=== PATIENT | female | born 1955 | race Caucasian/White ===

== ENCOUNTER → 2016-08-12 | Outpatient (CLI) | payer OTHER ==
[~2016-08-12] MED LIST: ADVAIR DISKUS 21 DSK IH; ALBUTEROL0.09 MG/AC INH; ATARAX25 MG PO; AUGMENTIN 875875 MG PO; AUVI-Q0.3 MG/0.3 MR; DOXYCYCLINE100 M3 PO; MEDROL DOSEPAK4 MG PO; MOTRIN600 MG PO; NEXIUM20 MG PO; OMNICEF300 MG PO; PEPCID20 MG PO; PREDNICOT10 MG PO; PREDNISONE; PREDNISONE10 MG PO; PREDNISONE20 M1 PO; PREDNISONE20 MG PO; SPIRIVA -- 3018 MCG INH; SYMBICORT1 AE1 INH; VIBRAMYCIN100 MG PO; ZITHROMAX500 MG PO
== END | disposition home or self-care (01) ==
LOC: RAD 14:09
DX: M54.6 Pain in thoracic spine (principal)

== ENCOUNTER → 2016-08-24 | Outpatient (CLI) | payer OTHER ==
[~2016-08-24] MED LIST changes: +CLARITIN LIQUI-10 MG PO; +DALI500T PO; +DULE1ARO1 INH; +LASIX40 MG PO; +POTASSIUM99 M3 PO; +SINGULAIR10 M1 PO; +SPIRIVA18 MCG PO
--- NOTE | ~2016-08-24 | ST ---
[place], [place] EXERCISE STRESS TEST REPORT NAME: ARYA JACOBO UNIT #: [id number] ROOM: DOCTOR: CHERYL HO MD BIRTHDATE: [birth year] DOS: PROCEDURE: Lexiscan stress test. INDICATIONS: Central chest pain. PHARMACOLOGICAL STRESS TEST: 1. The patient was given Lexiscan 0.4 mg over 10 minutes followed by nuclear injection at 40 seconds. 2. Exercise data: Baseline heart rate was 79, blood pressure 108/60. Heart rate at 2 minutes was 92. Blood pressure 98/50. 3. EKG data: Baseline rhythm, normal sinus rhythm. Stress EKG, no changes. 4. Clinical data: Symptoms, the patient had weird feeling and was short of breath. IMPRESSION: 1. Normal Lexiscan stress test. 2. Wait for Cardiolite images for full report. CHERYL HO MD CM:STRESS:EXERCISE STRESS TEST REPORT [id number] CHERYL HO MD
== END | disposition home or self-care (01) ==
LOC: CARD 08-17 08:30
DX: R07.89 Other chest pain (principal)

== ENCOUNTER → 2016-09-21 | Outpatient (CLI) | payer OTHER | END | disposition home or self-care (01) | LOC: US 09-01 07:30 | DX: K76.0 Fatty (change of) liver, not elsewhere classified (principal); R10.11 Right upper quadrant pain ==

== ENCOUNTER → 2016-10-11 | Outpatient (CLI) | payer OTHER | END | disposition home or self-care (01) | LOC: US 10:48 | DX: M79.605 Pain in left leg (principal); M79.604 Pain in right leg ==

== ENCOUNTER 2016-11-03 16:01 | Emergency (ER) | payer OTHER ==
[~2016-11-03] VITALS: Ht 175.2 cm; Wt 90.7 kg
[2016-11-03 16:10] VITALS: BP 135/85
[2016-11-03 16:33] LABS: BASO # 0.1 10*3/uL (0.0-0.1); BASO % 0.6 % (0.0-1.0); EOS # 0.2 10*3/uL (0.0-0.4); HEMATOCRIT 47.8 % (37.0-47.0); HEMOGLOBIN 15.5 g/dl (12.0-16.0); LYMPH # 2.9 10*3/uL (1.3-4.4); LYMPH % 30.5 % (27.0-41.0); MEAN CELL VOLUME 90.7 fl (81.0-99.0); MEAN CORPUSCULAR HGB 29.4 pg (27.0-31.0); MEAN CORPUSCULAR HGB CONC 32.4 g/dl (33.0-37.0); MEAN PLATELET VOLUME 8.8 fl (9.6-12.3); MONO # 0.8 10*3/uL (0.1-1.0); MONO % 8.5 % (3.0-9.0); NEUT # 5.6 10*3/uL (2.3-7.9); PLATELET COUNT AUTOMATED 257 10*3/uL (130-400); RED BLOOD COUNT 5.27 10*6/uL (4.10-5.10); RED CELL DISTRI WIDTH 14.2 % (0-14.5); WHITE BLOOD COUNT 9.7 10*3/uL (4.8-10.8)
[2016-11-03 17:04] LABS: ALBUMIN 3.4 gm/dl (3.1-4.5); BILIRUBIN, TOTAL 0.5 mg/dl (0.2-1.0); BUN 6 mg/dl (7-24); CARBON DIOXIDE 25 mmol/L (21-32); CHLORIDE 105 mmol/L (98-107); EST GLOM FILT AFRICAN AMERICAN > 60 ml/min; GLUCOSE 93 mg/dL (65-99); SGOT/AST 13 IU/L (3-35); SGPT/ALT 22 U/L (12-78); SODIUM 139 mmol/L (136-145); TOTAL PROTEIN 7.3 gm/dL (6.4-8.2)
[2016-11-03 17:07] LABS: ALKALINE PHOSPHATASE 130 U/L (45-117)
[2016-11-03 17:09] LABS: TROPONIN I < 0.015 ng/ml (<0.045)
[2016-11-03 19:13] VITALS: BP 110/55
== END 2016-11-03 20:45 | disposition left against medical advice (07) ==
LOC: ED 16:01 → EDHOLD 19:40 → ED 20:45
PROVIDERS: Emergency Medicine
DX: R07.9 Chest pain, unspecified (principal); J44.9 Chronic obstructive pulmonary disease, unspecified

== ENCOUNTER → 2016-11-17 | Outpatient (CLI) | payer OTHER ==
[2016-11-17 11:12] LABS: BUN 7 mg/dl (7-24); EST GLOM FILT AFRICAN AMERICAN > 60 ml/min
== END | disposition home or self-care (01) ==
LOC: CT 11-13 09:00 → LAB 02:41 → CT 11:00
PROVIDERS: Surgery
DX: R10.84 Generalized abdominal pain (principal); Z72.0 Tobacco use

== ENCOUNTER → 2016-11-19 | Outpatient (CLI) | payer OTHER | END | disposition home or self-care (01) | LOC: US 01:46 | DX: E04.1 Nontoxic single thyroid nodule (principal) ==

== ENCOUNTER → 2016-12-20 | Outpatient (CLI) | payer OTHER ==
[2016-12-20 13:21] LABS: CHOLESTEROL 171 mg/dL (<200); HDL CHOLESTEROL 38 mg/dl (40-60); LDL CHOLESTEROL 111 mg/dL (9-159); TRIGLYCERIDES 108 mg/dl (<150); VLDL CHOLESTEROL 22 mg/dL (6-40)
== END | disposition home or self-care (01) ==
LOC: LAB 12-15 12:04
PROVIDERS: Internal Medicine Cardiovascular Disease
DX: I51.9 Heart disease, unspecified (principal); I70.90 Unspecified atherosclerosis

== ENCOUNTER → 2017-02-24 | Day surgery (SDC) | payer OTHER ==
[~2017-02-24] VITALS: Ht 172.7 cm; Wt 86.2 kg
--- NOTE | ~2017-02-24 | PROC NOTE ---
[place], [place] PROCEDURE NOTE NAME: ARYA JACOBO UNIT #: [id number] ROOM: DOCTOR: NBA ELLIS MD BIRTHDATE: [birth year] DOS: 02/24/2017 PREOPERATIVE DIAGNOSIS: Intermittent constipation. POSTOPERATIVE DIAGNOSES: Pancolonic diverticulosis, internal hemorrhoids. PROCEDURE: Colonoscopy. ENDOSCOPIST: Nba Ellis MD HOOKER ON: CYNTHIA. ANESTHESIA: MAC. INDICATIONS: This is a 62-year-old lady who has had a previous colonoscopy more than 10 years ago and has a history of intermittent constipation, who is here for the above-mentioned procedure. The procedure and its complications were explained to the patient in detail preoperatively. Complications that were discussed included but were not limited to bleeding, missed lesions and colon perforation. She agreed to proceed. DESCRIPTION OF PROCEDURE: After identifying the patient, the patient was brought to the endoscopy suite and laid in this left lateral position. After IV sedation was administered, a timeout procedure was called and a digital rectal exam was performed. This was within normal limits. An adult colonoscope was now introduced into the anal canal and advanced sequentially into the rectum, sigmoid colon, descending colon, transverse colon and ascending colon up to the cecum. There was found to be areas of poor prep that needed to be suctioned away in order for better visualization of the colon. Upon reaching the cecum, the scope was withdrawn. There was mild pancolonic diverticulosis and some internal hemorrhoids upon reaching the anorectal area, which was confirmed on retroflexion. There were no polyps that could be visualized or any other areas of inflammation. The scope was then withdrawn and the patient was taken to the recovery room in a stable fashion. Total withdrawal time was approximately 7 minutes. There were no complications. Dr. Nba Ellis, the attending endoscopist, was present throughout the operating case. Based on these findings, the patient is recommended to have another colonoscopy in 10 years or sooner if she has any new symptoms. These findings will be discussed with the patient in the postoperative recovery room. [place], [place] PROCEDURE NOTE NAME: ARYA JACOBO UNIT #: [id number] ROOM: DOCTOR: NBA ELLIS MD BIRTHDATE: [birth year] Nba Ellis MD CM:DEEP:PROCEDURE NOTE 0 [phone] NBA ELLIS MD
[2017-02-24 07:20] VITALS: BP 114/63
[2017-02-24 07:45] VITALS: BP 103/62
[2017-02-24 08:00] VITALS: BP 123/64
[2017-02-24 08:15] VITALS: BP 113/60
== END | disposition home or self-care (01) ==
LOC: SDC 02-21 12:30
DX: K57.30 Diverticulosis of large intestine without perforation or abscess without bleeding (principal); K64.8 Other hemorrhoids; J43.9 Emphysema, unspecified; Z87.891 Personal history of nicotine dependence; Z98.890 Other specified postprocedural states; Z80.9 Family history of malignant neoplasm, unspecified

== ENCOUNTER → 2018-07-17 | Outpatient (CLI) | payer OTHER ==
[~2018-07-17] MED LIST changes: +DALIRESP500 MC1 PO; +DELTASONE20 M1 PO; +FLUTICASONE-SA1 EAC3 INH; +FUROSEMIDE40 MG PO; +INCRUSE ELLI62.5 MCG INH; +MONTELUKAST SOD10 MG PO; +POTASSIUM CHLO20 ME4 PO; +PROAIR HFA8.5 GM INH; +Vitamin D PO; +ZITHROMAX250 MG PO
== END | disposition home or self-care (01) ==
LOC: RAD 15:12
DX: M25.551 Pain in right hip (principal); R20.0 Anesthesia of skin; R20.2 Paresthesia of skin

== ENCOUNTER → 2018-09-15 | Outpatient (CLI) | payer OTHER | END | disposition home or self-care (01) | LOC: US 14:47 | DX: R10.2 Pelvic and perineal pain (principal) ==

== ENCOUNTER 2018-10-23 16:32 | Emergency (ER) | payer OTHER ==
[~2018-10-23] VITALS: Ht 172.7 cm; Wt 86.2 kg
[2018-10-23 16:32] VITALS: BP 124/54
[~2018-10-23 16:32] MED LIST changes: -DALIRESP500 MC1 PO; -DELTASONE20 M1 PO; -FLUTICASONE-SA1 EAC3 INH; -FUROSEMIDE40 MG PO; -INCRUSE ELLI62.5 MCG INH; -MONTELUKAST SOD10 MG PO; -POTASSIUM CHLO20 ME4 PO; -PROAIR HFA8.5 GM INH; -Vitamin D PO; -ZITHROMAX250 MG PO
[2018-10-23] MEDS ORDERED: ZITHROMAX250 MG PO (18:24)
[2018-10-23] MEDS ORDERED: DELTASONE20 M1 PO (18:24)
[2018-12-10] MEDS ORDERED: FUROSEMIDE40 MG PO (11:39)
[2018-12-10] MEDS ORDERED: MONTELUKAST SOD10 MG PO (11:40)
[2018-12-10] MEDS ORDERED: INCRUSE ELLI62.5 MCG INH (11:42)
[2018-12-10] MEDS ORDERED: DALIRESP500 MC1 PO (11:42)
[2018-12-10] MEDS ORDERED: POTASSIUM CHLO20 ME4 PO (11:44)
[2018-12-10] MEDS ORDERED: FLUTICASONE-SA1 EAC3 INH (11:45)
[2018-12-11] MEDS ORDERED: PROAIR HFA8.5 GM INH (16:59)
[2018-12-15] MEDS ORDERED: ZITHROMAX500 MG PO (12:22)
[2018-12-15] MEDS ORDERED: Vitamin D PO ×2 (12:22→12:23)
[2018-12-15] MEDS ORDERED: PREDNISONE10 MG PO (12:22)
== END 2018-10-23 18:48 | disposition home or self-care (01) ==
LOC: ED 16:32
DX: J44.9 Chronic obstructive pulmonary disease, unspecified (principal); J40 Bronchitis, not specified as acute or chronic; Z79.899 Other long term (current) drug therapy

== ENCOUNTER → 2018-11-16 | Outpatient (CLI) | payer OTHER ==
[~2018-11-16] MED LIST changes: +DALIRESP500 MC1 PO; +DELTASONE20 M1 PO; +FLUTICASONE-SA1 EAC3 INH; +FUROSEMIDE40 MG PO; +INCRUSE ELLI62.5 MCG INH; +MONTELUKAST SOD10 MG PO; +POTASSIUM CHLO20 ME4 PO; +PROAIR HFA8.5 GM INH; +Vitamin D PO; +ZITHROMAX250 MG PO
== END | disposition home or self-care (01) ==
LOC: LAB 12:25
DX: R05 Cough (principal)

== ENCOUNTER → 2019-06-01 | Outpatient (CLI) | payer OTHER ==
[~2019-06-01] MED LIST changes: +ASPIR LOW81 MG PO; +ONE-DAILY MULT1 EACH PO
--- NOTE | 2019-06-01 09:45 | NUR ---
INFORMED CONSENT OBTAINED FOR STANDARD GXT WITH DR. CHAPIN. RESTING NSR WITH A SUPINE HR OF 75 WITH BP 134/66 AND STANDING HR OF 79 WITH BP OF 122/66. HAS CONTINUOUS NASAL O2 AT 3L WITH SPO2 OF 97% PRIOR TO EXERCISE. PT COMPLETED 1:21 OF STAGE I AT 1.7 MPH WITH 10% GRADE AND TEST TERMINATED BECAUSE OF SHORTNESS OF BREATH. SP02 OF 95% WITH NASAL O2 AT 3L. REACHED A PEAK HR OF 94 WHICH IS 60% OF PREDICTED MAX WITH A PEAK BP OF 148/60. DEVELOPED CENTRAL CHEST DISCOMFORT THAT WAS A 5 ON PAIN SCALE AND RELIEVED AT 1:00 OF RECOVERY. HAD NO EKG CHANGES. IMMEDIATE RECOVERY SPO2 OF 94% WITH NASAL O2 AT 3L. HAS A LOW LIMITED EXERCISE TOLERANCE. LAST RECOVERY HR OF 71 WITH BP OF 124/60. SUBMAXIMAL NONDIAGNOSTIC STANDARD GXT. IV DISCONTINUED AND DISCHARGED IN STABLE CONDITION. TAKEN TO LOBBY VIA WHEELCHAIR.
== END | disposition home or self-care (01) ==
LOC: CARD 01:25
DX: R07.9 Chest pain, unspecified (principal)

== ENCOUNTER → 2019-08-01 | Outpatient (CLI) | payer OTHER ==
[~2019-08-01] MED LIST changes: +ZYRTEC10 M3 PO
--- NOTE | 2019-08-01 08:20 | NUR ---
INFORMED CONSENT OBTAINED FOR A LEXISCAN STRESS TEST WITH DR. CHAPIN. RESTING EKG NSR WITH A HT RT OF 74, AND BP OF 112/58. BREATH SOUNDS DIMINISHED SAMANTA, WITH SPO2 OF 96% VIA 2LNC. COMPLETED ONE MINIUTE OF A LEXISCAN STRESS TEST RECEIVING LEXISCAN 0.4 MG OVER 10 SECONDS. VOICED "SOB" DURING TESTING THAT WAS RELIEVED IN RECOVERY. HAD A PEAK HT RT OF 94, AND A BP OF 118/52. LAST RECOVERY HT RT OF 90, WITH A BP OF 112/58. AWAITING NUCLEAR IMAGING IN STABLE CONDITION.
== END | disposition home or self-care (01) ==
LOC: CARD 07-27 00:03
DX: I25.119 Atherosclerotic heart disease of native coronary artery with unspecified angina pectoris (principal); I50.9 Heart failure, unspecified

== ENCOUNTER 2020-02-01 10:26 | Inpatient (IN) | payer OTHER ==
[~2020-02-01] VITALS: Ht 172.7 cm; Wt 91.6 kg
[2020-02-01 10:37] VITALS: BP 142/64
[2020-02-01 10:46] LABS: BASO # 0.1 10*3/uL (0.0-0.1); BASO % 0.6 % (0.0-1.0); EOS # 0.2 10*3/uL (0.0-0.4); EOS % 1.8 % (1.0-4.0); HEMATOCRIT 46.7 % (37.0-47.0); LYMPH # 3.1 10*3/uL (1.3-4.4); LYMPH % 29.7 % (27.0-41.0); MEAN CELL VOLUME 92.7 fl (81.0-99.0); MEAN CORPUSCULAR HGB 29.2 pg (27.0-31.0); MEAN CORPUSCULAR HGB CONC 31.5 g/dl (33.0-37.0); MEAN PLATELET VOLUME 8.9 fl (9.6-12.3); MONO # 0.7 10*3/uL (0.1-1.0); MONO % 6.9 % (3.0-9.0); NEUT # 6.3 10*3/uL (2.3-7.9); NEUT % 60.7 % (47.0-73.0); PLATELET COUNT AUTOMATED 212 10*3/uL (130-400); RED BLOOD COUNT 5.04 10*6/uL (4.10-5.10); RED CELL DISTRI WIDTH 13.4 % (0-14.5); WHITE BLOOD COUNT 10.4 10*3/uL (4.8-10.8)
[2020-02-01 11:09] LABS: ALBUMIN 3.5 gm/dl (3.1-4.5); ALKALINE PHOSPHATASE 94 U/L (45-117); BUN 9 mg/dl (7-24); CHLORIDE 106 mmol/L (98-107); CREATININE 0.66 mg/dL (0.55-1.02); POTASSIUM 3.7 mmol/L (3.5-5.1); SGOT/AST 11 IU/L (3-35); SGPT/ALT 23 U/L (12-78); SODIUM 140 mmol/L (136-145); TOTAL PROTEIN 7.6 gm/dL (6.4-8.2)
[2020-02-01 11:16] LABS: TROPONIN I < 0.015 ng/ml (<0.045)
[2020-02-01 11:39] VITALS: BP 115/41
[2020-02-01] MEDS ORDERED: SYMB160 INH (13:45)
[2020-02-01] MEDS ORDERED: SPIRIVA RESPIMAT4 GM INH (13:51)
[2020-02-01 16:00] VITALS: BP 117/83
[2020-02-01 20:00] VITALS: BP 143/68
[2020-02-02] VITALS: BP 130/63
[2020-02-02 06:37] LABS: BASO % 0.2 % (0.0-1.0); HEMATOCRIT 46.5 % (37.0-47.0); LYMPH # 1.5 10*3/uL (1.3-4.4); LYMPH % 11.3 % (27.0-41.0); MEAN CELL VOLUME 93.8 fl (81.0-99.0); MEAN PLATELET VOLUME 9.5 fl (9.6-12.3); MONO # 0.5 10*3/uL (0.1-1.0); MONO % 3.7 % (3.0-9.0); NEUT # 11.1 10*3/uL (2.3-7.9); NEUT % 84.3 % (47.0-73.0); PLATELET COUNT AUTOMATED 243 10*3/uL (130-400); RED BLOOD COUNT 4.96 10*6/uL (4.10-5.10); RED CELL DISTRI WIDTH 13.2 % (0-14.5); WHITE BLOOD COUNT 13.2 10*3/uL (4.8-10.8)
[2020-02-02 07:04] LABS: BUN 11 mg/dl (7-24); CHLORIDE 106 mmol/L (98-107); CREATININE 0.65 mg/dL (0.55-1.02); POTASSIUM 4.1 mmol/L (3.5-5.1); SODIUM 139 mmol/L (136-145)
[2020-02-02 08:00] VITALS: BP 132/58
[2020-02-02] MEDS ORDERED: LEVAQUIN500 M2 PO (11:16)
[2020-02-02] MEDS ORDERED: PREDNISONE10 MG PO (11:16)
== END 2020-02-02 14:18 | disposition home or self-care (01) | DRG 140 ==
LOC: ED 10:26 → EDHOLD 11:48 → 5E 12:21
PROVIDERS: Emergency Medicine; Internal Medicine; ADMIT Student in an Organized Health Care Education/Training Program; ATTEND Student in an Organized Health Care Education/Training Program
DX: J44.1 Chronic obstructive pulmonary disease with (acute) exacerbation (principal); K21.9 Gastro-esophageal reflux disease without esophagitis; J45.909 Unspecified asthma, uncomplicated; G47.33 Obstructive sleep apnea (adult) (pediatric); R73.9 Hyperglycemia, unspecified; F17.210 Nicotine dependence, cigarettes, uncomplicated; M19.90 Unspecified osteoarthritis, unspecified site; E55.9 Vitamin D deficiency, unspecified; J96.10 Chronic respiratory failure, unspecified whether with hypoxia or hypercapnia; Z98.891 History of uterine scar from previous surgery; Z83.6 Family history of other diseases of the respiratory system; Z82.49 Family history of ischemic heart disease and other diseases of the circulatory system; Z71.6 Tobacco abuse counseling; F41.9 Anxiety disorder, unspecified